=== PATIENT | female | born 1970 | race Hispanic/Latino ===

== ENCOUNTER → 2018-07-19 | Day surgery (SDC) | payer OTHER ==
[2018-07-17 10:01] LABS: BASOPHILS # (AUTO) 0.1 (0.0-0.1); BASOPHILS % 0.7 % (0.0-1.0); EOSINOPHILS # (AUTO) 0.3 (0.0-0.4); EOSINOPHILS % 4.5 % (0.0-6.0); HEMATOCRIT 43.5 % (34.2-44.1); HEMOGLOBIN 14.1 g/dL (12.0-16.0); LYMPHOCYTES # (AUTO) 2.8 (1.0-3.2); MEAN CORPUSCULAR HEMOGLOBIN 29.6 pg (28-32); MEAN CORPUSCULAR HGB CONC 32.4 g/dL (31-35); MEAN CORPUSCULAR VOLUME 91.2 fL (81-99); MONOCYTES # (AUTO) 0.6 (0.2-0.8); MONOCYTES % 7.8 % (4.4-11.3); NEUTROPHILS # (AUTO) 3.7 (2.1-6.9); NEUTROPHILS % 48.7 % (38.7-80.0); PLATELET COUNT 203 x10e3/uL (140-360); RED BLOOD COUNT 4.77 x10e6/uL (3.6-5.1); RED CELL DISTRIBUTION WIDTH 13.4 % (11.7-14.4)
[2018-07-17 11:09] LABS: ANION GAP 10.2 mmol/L (8-16); BLOOD UREA NITROGEN 18 mg/dL (7-26); BUN/CREATININE RATIO 24 (6-25); CARBON DIOXIDE 29 mmol/L (22-29); CHLORIDE 103 mmol/L (98-107); CREATININE, SERUM 0.75 mg/dL (0.57-1.11); EST GLOMERULAR FILTRATION RATE > 60 ML/MIN (60-); GLUCOSE 92 mg/dL (74-118); POTASSIUM 4.2 mmol/L (3.5-5.1); SODIUM 138 mmol/L (136-145)
--- NOTE | 2018-07-17 11:30 | Diagnostic Imaging Report ---
PROCEDURE: X-RAY CHEST, TWO VIEWS COMPARISON: None. INDICATIONS: PREOPERTIVE CHEST XRAY FOR FOOT SURGERY FINDINGS: LUNGS: No consolidations or edema. PLEURA: No effusions or pneumothorax. HEART & MEDIASTINUM: The heart is within normal size-limits. BONES & SOFT TISSUES: No acute findings. CONCLUSION: No acute thoracic abnormality. Maximilian Larson D.O. Dictated by: Maximilian Larson D.O. on 07/17/2018 at 11:39 Electronically approved by: Maximilian Larson D.O. on 07/17/2018 at 11:39
[2018-07-17 11:34] LABS: CALCIUM 9.6 mg/dL (8.4-10.2)
[~2018-07-19] MED LIST: ACETAMINOPHEN 1000 MG/100 ML IV ONE; BETAMETHASONE DISODIUM PHOS 6 MG/ML VIAL ONE; BUPIVACAINE HCL 0.5% INJ 30 ML VIAL INJ ONE; CEFAZOLIN SOD 2 GM/D5W 50ML 50 ML IV ONE; DEXAMETHASONE SOD PHOS INJ 4 MG/ML VIAL ONE; FENTANYL CITRATE/PF 100MCG/2 ML INJ ONE; LIDOCAINE HCL 1% LOCAL INJ 20 ML VIAL ONE; LIDOCAINE HCL 2% LOCAL INJ 5 ML SDV VIAL INJ ONE; MIDAZOLAM HCL 2 MG/2 ML VIAL ONE; MORPHINE SULFATE 2 MG/ML SYR ONE; MUPIROCIN 2% OINT 22 GM TUBE ONE; OMEPRAZOLE40 MG PO; ONDANSETRON HCL INJ 2 MG/ML VIAL ONE; PAXIL10 MG PO; PRINIVIL10 MG PO; PROPOFOL IV EMULSION 10 MG/ML 20 ML VIAL ONE; SEVOFLURANE INHAL SOLN 250 ML PEN BTL ONE
--- OUTSIDE RECORDS SUMMARY | 2018-07-19 05:34 | XMS REPORT ---
Author Author [facility] Address Unknown Phone Unavailable Care Team Providers Care [employer] Name Role Phone REGINALD LEWIS Unavailable Unavailable Problems This patient has no known problems. Allergies, Adverse Reactions, Alerts This patient has no known allergies or adverse reactions. Medications This patient has no known medications. Results Test Description Test Time Test Comments Text Results Atomic Results Result Comments CHEST 2 VIEWS 2018-07-17 11:39:00 [place] [address] Patient Name: NAIF KHAN MR #: [id number] : 1970 Age/Sex: 48/F Req #: [id number] Adm Physician: Ordered by: REGINALD LEWIS DPM Report #: [id number] Location: OR Room/Bed: Procedure: [id number] DX/CHEST 2 VIEWS Exam Date: 07/17/18 Exam Time: 1020 REPORT STATUS: Signed PROCEDURE: X-RAY CHEST, TWO VIEWS COMPARISON: None. INDICA TIONS: PREOPERTIVE CHEST XRAY FOR FOOT SURGERY FINDINGS: LUNGS: No consolidations or edema. PLEURA: No effusions or pneumothorax. HEART MEDIASTINUM: The heart is within normal size-limits. BONES SOFT TISSUES: No acute findings. CONCLUSION: No acute thoracic abnormality. Aleena Larson D.O. Dictated by: Aleena Larson D.O. on 07/17/2018 at 11:39 Electronically approved by: Aleena Larson D.O. on 07/17/2018 at 11:39 Dictated By: ALEENA LARSON DO [id number] Transcribed By: LILIANA on 07/17/181138 COPY TO: REGINALD LEWIS DPM
[2018-07-19 10:15] VITALS: BP 107/71
--- NOTE | 2018-07-19 10:32 | Diagnostic Imaging Report ---
PROCEDURE:X-RAY RIGHT FOOT, TWO VIEWS COMPARISON:None. INDICATIONS:POST OPERATIVE RIGHT FOOT SURGERY FINDINGS: See conclusion. CONCLUSION: AP and lateral post-operative views of the right foot with overlying bandage material show post-surgical changes of a bunionectomy and arthroplasty with wire and screw through the distal first metatarsal and a K wire through the fourth phalanges. There is surrounding soft-tissue swelling consistent with recent surgery. Surgical drain is present. Please refer to performing physician's notes for full details of this procedure. Maximilian Larson D.O. Dictated by: Maximilian Larson D.O. on 07/19/2018 at 10:42 Electronically approved by: Maximilian Larson D.O. on 07/19/2018 at 10:42
--- NOTE | 2018-07-19 12:15 | Operative Report ---
DATE OF PROCEDURE: July 19, 2018 PREOPERATIVE DIAGNOSES 1. Painful hallux valgus deformity right foot. 2. Painful contracted hammer toes fourth digit, right foot. 3. Painful contracted hammer toes fifth digit, right foot. 4. Painful plantar calcaneal heel spur, right foot. 5. Painful tarsal tunnel syndrome, right foot. POSTOPERATIVE DIAGNOSES 1. Painful hallux valgus deformity right foot. 2. Painful contracted hammer toes fourth digit, right foot. 3. Painful contracted hammer toes fifth digit, right foot. 4. Painful plantar calcaneal heel spur, right foot. 5. Painful tarsal tunnel syndrome, right foot. OPERATIVE PROCEDURES 1. Neo bunionectomy screw fixation, right foot. 2. Arthroplasty, fourth digit with K-wire fixation of fourth. 3. Arthroplasty, fifth digit. 4. Resection of plantar calcaneal heel spur. 5. Neurolysis tibial nerve, right foot. 6. Neurolysis medial plantar nerve, right foot. 7. Neurolysis lateral plantar nerve, right foot. 8. Intraoperative use of fluoroscopy. 9. Trigger point shot of cortisone. 10. Application of posterior splint. ANESTHESIA: General. HEMOSTASIS: Pneumatic thigh tourniquet at 350 mmHg. PROCEDURE IN DETAIL: Patient was taken into the operating room placed on the operating room table in supine position. Following induction of general anesthesia by the anesthesiologist, Webril wraps were placed on the patient's right thigh followed by a placement of a right thigh tourniquet. The right lower extremity was then prepped and draped in the usual aseptic manner. Following procedure was then performed. Procedure #1: Neo bunionectomy screw fixation, right foot. Attention was directed to the dorsomedial aspect of the first MPJ where a 6 cm linear incision was performed. Incision was deepened down to the joint capsule and then a longitudinal capsulotomy was then performed exposing a dorsomedial exostosis to the first metatarsal head. Via the use of an oscillating saw, dorsomedial exostosis was excised from the operation site in toto. A V-osteotomy was then performed from medial to lateral, capital fragment was then transposition laterally. Upon adequate anatomical and surgical reduction utilizing proper AO technique, a 3.0, 14-mm cortical screw in conjunction with a buried 0.045 K-wire was used to achieve stability of osteotomy site. All redundant bone media was excised via the use of an oscillating saw and rotating getachew. Range of motion was still noted to be track bound so extensor brevis tendon was isolated once that was done, excellent range of motion and alignment was achieved. Procedures 2 and 3: Arthroplasty fourth and fifth digits with K-wire fixation of the fourth. Attention was then directed to the dorsal aspect. The above-mentioned toes overlying the proximal phalangeal joint where a 3 cm linear incision was performed. Incision was deepened down to the joint capsule. Transverse capsulotomy was then performed exposing the head of the proximal phalanx. Via the use of an oscillating saw, head of the proximal phalanxes were excised from the operation site in toto. All rough and bony edges were rasped smooth. Fourth toe was still noted to be contracted. So a 0.045 K-wire was used to achieve stability of the osteotomy site introduced up to the metatarsophalangeal joint area. Procedure #4: Resection of plantar calcaneal heel spur, right foot. Attention was then directed to the medial aspect of the right heel where a 4 to 5 cm linear incision was performed. Incision was deepened down to the plantar fascial level. Plantar fascia was then clearly visualized. The medial one-half of the plantar fascia was cut from its insertion site exposing the plantar calcaneal spur. Via the use of an reciprocating saw, an osteotome and mallet, the plantar calcaneal spur was excised and all rough and bony edges were rasped smooth via the use of a reciprocating getachew. Procedure #5, 6, and 7: Neurolysis tibial nerve, neurolysis medial plantar nerve, and neurolysis lateral plantar nerve. Attention was then directed to the medial aspect of the right tarsal canal where a curvilinear incision was performed. The incision was deepened down via sharp and blunt dissection down to the flexor retinaculum. Utilizing meticulous dissection, the flexor retinaculum was then cut via the use of Metzenbaum scissors. The tibial nerve was then encountered and freed from all soft tissue adhesions via blunt dissection. The incision was then deepened down to the priyanka pedis. The priyanka pedis was then cut via using a Metzenbaum scissors and the tibial nerve was followed up to the medial and lateral plantar branches where all adhesions were released via blunt dissection. All areas were then copiously flushed with sterile antibiotic solution and suctioned. Procedure #8: Intraoperative use of fluoroscopy was then used to make sure proper fixation and alignment was achieved with adequate resection of plantar calcaneal spur. Closure was then obtained utilizing 3-0 Vicryl, 4-0 Vicryl, and 4-0 nylon for capsule, subcutaneous tissue, and skin respectively. A 7-mm TLS drain was inserted to the heel area to try to prevent hematoma formation. Procedure #9: Trigger point shot of cortisone was then given to the first interspace of the right foot, fourth interspace of the right foot, medial aspect of the right heel, and tarsal canal area. Then, approximately 15 mL of 0.5% plain Marcaine plus 5 mL of Xylocaine plain were used to achieve local anesthesia above my surgical area. Sterile dressing was applied. Upon release of the thigh tourniquet, blood hyperemia was noted immediate to all digits of the patient's right foot. Procedure #10: Application of posterior splint. A properly placed posterior splint was then applied keeping the foot at 90 degrees with respect to the leg to try to prevent other postoperative complications. Patient was then transferred from the OR to the recovery room with vital signs stable and neurovascular status intact. No intraoperative complications were encountered. Blood loss from the surgery was minimal. Patient to remain nonweightbearing with the aid of crutches. Keep her foot elevated. Needs to apply an ice pack to the ankle joint area. Job#: [id number] DAVID
== END | disposition home or self-care (01) ==
LOC: OR 05:31
PROVIDERS: ATTEND Podiatrist Foot Surgery
DX: M20.11 Hallux valgus (acquired), right foot (principal); M20.41 Other hammer toe(s) (acquired), right foot; M77.31 Calcaneal spur, right foot; G57.51 Tarsal tunnel syndrome, right lower limb; G58.8 Other specified mononeuropathies; I10 Essential (primary) hypertension; E11.9 Type 2 diabetes mellitus without complications; K21.9 Gastro-esophageal reflux disease without esophagitis; Z91.041 Radiographic dye allergy status; Z01.810 Encounter for preprocedural cardiovascular examination; Z01.812 Encounter for preprocedural laboratory examination; Z01.818 Encounter for other preprocedural examination; Z86.73 Personal history of transient ischemic attack (TIA), and cerebral infarction without residual deficits
CPT/HCPCS: 28035; 28119; 28285 ×2; 28296; 36415; 64704 ×2; 71046; 73620; 80048; 85025; 93005; C1713; J0131; J0690; J0720; J1100; J2001 ×2; J2250; J2270; J2405; J2704